=== PATIENT | male | born 1985 | race Caucasian/White ===

== ENCOUNTER 2016-07-25 12:09 | Emergency (ER) | payer OTHER ==
[2016-07-25 12:20] VITALS: TEMP 98.2; O2SAT 97
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
[2016-07-25 13:00] VITALS: BP 128/80; PULSE 56; RESP 16
== END 2016-07-25 13:53 | disposition home or self-care (01) ==
DX: S62.366A Nondisplaced fracture of neck of fifth metacarpal bone, right hand, initial encounter for closed fracture (principal); W22.8XXA Striking against or struck by other objects, initial encounter